=== PATIENT | male | born 1985 | race Caucasian/White ===

== ENCOUNTER 2016-11-30 21:43 | Emergency (ER) | END 2016-12-01 02:01 | disposition home or self-care (01) | DX: M25.572 Pain in left ankle and joints of left foot (principal) | CPT/HCPCS: 73590; 73610; Z7502; Z7610 ==

== ENCOUNTER 2017-03-07 18:02 | Emergency (ER) | END 2017-03-07 22:01 | disposition home or self-care (01) ==